=== PATIENT | female | born 1955 | race Two or more races ===

== ENCOUNTER 2020-02-08 08:00 | Outpatient (CLI) | payer OTHER | END 2020-02-08 11:00 | disposition home or self-care (01) | LOC: SONOGRAMA 08:00 | PROVIDERS: ATTEND Pathology Anatomic Pathology & Clinical Pathology | DX: E04.2 Nontoxic multinodular goiter (principal) ==

== ENCOUNTER 2020-05-23 11:43 | Outpatient (CLI) | payer OTHER | END 2020-05-23 11:46 | disposition home or self-care (01) | LOC: SONOGRAMA 11:43 | PROVIDERS: ATTEND Pathology Anatomic Pathology & Clinical Pathology | DX: E04.1 Nontoxic single thyroid nodule (principal); D34 Benign neoplasm of thyroid gland; E06.5 Other chronic thyroiditis; E04.8 Other specified nontoxic goiter ==